=== PATIENT | female | born 1975 | race Caucasian/White ===

== ENCOUNTER → 2016-12-16 | Outpatient (CLI) | payer OTHER | LOC: SLEEP 21:30 | DX: G47.33 Obstructive sleep apnea (adult) (pediatric) (principal) | CPT/HCPCS: 95810 ==

== ENCOUNTER → 2020-12-06 | Outpatient (CLI) | payer OTHER | LOC: KOH-I 09:59 | DX: J01.91 Acute recurrent sinusitis, unspecified (principal); J32.0 Chronic maxillary sinusitis | CPT/HCPCS: 70486 ==